=== PATIENT | female | born 1980 | race Caucasian/White ===

== ENCOUNTER 2022-02-04 22:33 | Emergency (ER) | payer OTHER ==
[2022-02-04 22:41] VITALS: RESP 18; TEMP 98.4; BMI 34.0
[2022-02-05 05:25] LABS: ALBUMIN 3.5 g/dl (3.4-5.0); BLOOD UREA NITROGEN 18.7 mg/dL (7-18); CALCIUM 8.6 mg/dL (8.5-10.1); MAGNESIUM 2.2 mg/dL (1.8-2.4)
[2022-02-05 05:27] LABS: BASO % 0.3 % (0-2.0); EOS % 2.2 % (0-4.5); LYMPH % 24.7 % (8-40); MCH 30.2 pg (25.7-33.7); MCHC 32.5 g/dl (32.0-36.0); MEAN CELL VOLUME 92.9 fl (80-96); MEAN PLT VOLUME 9.1 fl (7.5-11.1); MONO % 5.9 % (3.8-10.2); NEUT % 66.9 % (42.8-82.8); PLATELET COUNT 236 10^3/uL (134-434); RBC 3.99 M/mm3 (3.60-5.2); RDW 13.5 % (11.6-15.6); WHITE BLOOD COUNT 6.6 K/mm3 (4.0-10.0)
[2022-02-05 05:29] LABS: CREATININE 0.8 mg/dL (0.55-1.3)
[2022-02-05 05:30] LABS: BILIRUBIN,TOTAL 0.5 mg/dL (0.2-1); TOT PROT 6.4 g/dl (6.4-8.2)
[2022-02-05 05:52] LABS: INR 1.06 (0.83-1.09); PROTHROMBIN TIME (PATIENT) 12.2 SEC (9.7-13.0)
[2022-02-05 05:55] LABS: ACTIVATED PTT 31.3 SECONDS (25.2-36.5)
[2022-02-05 10:10] VITALS: BP 109/70; PULSE 52
== END 2022-02-05 10:07 | disposition home or self-care (01) ==
LOC: JER 22:33
DX: R00.2 Palpitations (principal)
CPT/HCPCS: 0241U-QW; 36415; 71045-TC-FY; 80053; 83735; 84484; 84703; 85025; 85379; 85610; 85730; 93005; 93010; 99285-25

== ENCOUNTER 2022-04-30 07:46 | Emergency (ER) | payer OTHER ==
[2022-04-30 07:56] VITALS: BP 115/69; PULSE 76; RESP 18; TEMP 97.7; BMI 38.0
[2022-04-30] MEDS ORDERED: diphenhydrAMINE HCL 25 MG CAPSULE (FP) PO ONE ×2 (09:25→09:35)
[2022-04-30] MEDS ORDERED: predniSONE 20 MG TABLET (UD) PO ONE (09:25)
[2022-04-30] MEDS ORDERED: predniSONE 20 MG TABLET (UD) ONE (09:35)
[2022-04-30 09:56] LABS: BASO % 0.2 % (0-2.0); EOS % 0.6 % (0-4.5); HEMATOCRIT 38.4 % (32.4-45.2); LYMPH % 13.3 % (8-40); MCHC 33.8 g/dl (32.0-36.0); MEAN CELL VOLUME 91.8 fl (80-96); MEAN PLT VOLUME 8.4 fl (7.5-11.1); MONO % 4.5 % (3.8-10.2); NEUT % 81.4 % (42.8-82.8); PLATELET COUNT 252 10^3/uL (134-434); RBC 4.18 M/mm3 (3.60-5.2); RDW 13.1 % (11.6-15.6); WHITE BLOOD COUNT 10.9 K/mm3 (4.0-10.0)
[2022-04-30 10:20] LABS: ALBUMIN 3.8 g/dl (3.4-5.0); CALCIUM 8.8 mg/dL (8.5-10.1)
[2022-04-30 10:21] LABS: BLOOD UREA NITROGEN 17.4 mg/dL (7-18)
[2022-04-30 10:24] LABS: CREATININE 0.8 mg/dL (0.55-1.3)
[2022-04-30 10:25] LABS: BILIRUBIN,TOTAL 0.6 mg/dL (0.2-1)
== END 2022-04-30 11:28 | disposition home or self-care (01) ==
LOC: JERFT 07:46 → JER 07:46 → JERFT 11:28
DX: R21 Rash and other nonspecific skin eruption (principal)
CPT/HCPCS: 36415; 80053; 84443; 85025; 99283-25

== ENCOUNTER 2022-05-16 23:09 | Emergency (ER) | payer OTHER ==
[2022-05-16 23:21] VITALS: BP 115/75; PULSE 85; RESP 18; TEMP 97.8; BMI 35.0
== END 2022-05-17 00:24 | disposition left against medical advice (07) ==
LOC: JER 23:09
DX: R07.89 Other chest pain (principal)
CPT/HCPCS: 93005; 93010; 99283-25

== ENCOUNTER 2024-01-07 04:37 | Day surgery (SDC) | payer OTHER ==
[2024-01-06 09:49] VITALS: BMI 35.0
[2024-01-07 11:22] VITALS: TEMP 98.3
[2024-01-07 12:10] VITALS: BP 105/60; PULSE 70; RESP 16
== END 2024-01-07 12:23 | disposition home or self-care (01) ==
LOC: JASU-ENDO 04:37
PROVIDERS: ATTEND Internal Medicine Gastroenterology
PROC: 0DB48ZX Excision of Esophagogastric Junction, Via Natural or Artificial Opening Endoscopic, Diagnostic (ICD-10-PCS; 2024-01-07)
PROC: 0DB68ZX Excision of Stomach, Via Natural or Artificial Opening Endoscopic, Diagnostic (ICD-10-PCS; 2024-01-07)
PROC: 0DBE8ZX Excision of Large Intestine, Via Natural or Artificial Opening Endoscopic, Diagnostic (ICD-10-PCS; principal; 2024-01-07 10:00)
DX: Z12.11 Encounter for screening for malignant neoplasm of colon (principal); K64.1 Second degree hemorrhoids; K21.00 Gastro-esophageal reflux disease with esophagitis, without bleeding; K44.9 Diaphragmatic hernia without obstruction or gangrene; K29.50 Unspecified chronic gastritis without bleeding; R10.12 Left upper quadrant pain; R63.4 Abnormal weight loss; R10.84 Generalized abdominal pain
CPT/HCPCS: 81025; 88305-TC

== ENCOUNTER 2024-01-21 03:51 | Day surgery (SDC) | payer OTHER ==
[2024-01-16 11:45] VITALS: BMI 33.5
[2024-01-21] MEDS ORDERED: INDOCYANINE GREEN 25 MG/10 ML VIAL IVPUSH ONE ×2 (07:19→07:20)
[2024-01-21] MEDS ORDERED: BUPIVACAINE HCL/PF 0.25% (2.5MG/ML) 10 ML VIAL ONE (07:19)
[2024-01-21] MEDS ORDERED: ROCURONIUM BROMIDE 50 MG/5 ML SYRINGE ONE ×2 (07:41→08:26)
[2024-01-21] MEDS ORDERED: PROPOFOL 20 ML ONE (07:41)
[2024-01-21] MEDS ORDERED: MIDAZOLAM HCL 2 MG/2 ML SINGLE DOSE VIAL ONE (08:03)
[2024-01-21] MEDS ORDERED: cefOXitin SODIUM 2 GM VIAL (RESTRICTED TO ID) IVPB ONE (08:21)
[2024-01-21] MEDS: cefOXitin SODIUM 2 GM VIAL (RESTRICTED TO ID) IVPB ONE ×2 (08:25)
[2024-01-21] MEDS: BUPIVACAINE HCL/PF 0.25% (2.5MG/ML) 10 ML VIAL IJ ONE ×2 (08:32)
[2024-01-21] MEDS ORDERED: ACETAMINOPHEN INJECTION 100 ML ONE (09:41)
[2024-01-21] MEDS ORDERED: DEXAMETHASONE SOD PHOSPHATE 4 MG/1 ML VIAL ONE (09:43)
[2024-01-21] MEDS ORDERED: ONDANSETRON 4 MG/2 ML VIAL ONE (09:43)
[2024-01-21] MEDS ORDERED: SUGAMMADEX SODIUM 200 MG/2 ML VIAL ONE ×2 (09:45→09:51)
[2024-01-21] MEDS ORDERED: ONDANSETRON 4 MG/2 ML VIAL IVPUSH PRN (10:54)
[2024-01-21] MEDS ORDERED: LACTATED RINGERS SOLUTION 1,000 ML IV SCH (11:00)
[2024-01-21] MEDS: oxyCODONE HCL 5 MG TABLET PO PRN (12:19)
[2024-01-21] MEDS ORDERED: oxyCODONE HCL 5 MG TABLET ONE (12:22)
[2024-01-21 12:58] VITALS: RESP 20; TEMP 97.3
[2024-01-21 15:31] VITALS: BP 135/75; PULSE 78
== END 2024-01-21 14:05 | disposition home or self-care (01) ==
LOC: JASU-SURG 03:51
PROVIDERS: ATTEND Surgery
PROC: 0FT44ZZ Resection of Gallbladder, Percutaneous Endoscopic Approach (ICD-10-PCS; principal; 2024-01-21 08:00)
DX: K80.10 Calculus of gallbladder with chronic cholecystitis without obstruction (principal); E03.9 Hypothyroidism, unspecified; M85.88 Other specified disorders of bone density and structure, other site
CPT/HCPCS: 47562; S2900; 81025; 86850; 86900; 86901; 88304-TC; 94760; J0131

== ENCOUNTER 2024-06-07 11:27 | Inpatient (IN) | payer OTHER ==
[2024-06-07 11:45] VITALS: BMI 32.2
[2024-06-07 12:52] LABS: BASO % 0.6 % (0-2.0); EOS % 1.8 % (0-4.5); HEMATOCRIT 36.1 % (32.4-45.2); HEMOGLOBIN 12.4 GM/dL (10.7-15.3); LYMPH % 25.6 % (8-40); MCH 31.1 pg (25.7-33.7); MCHC 34.3 g/dl (32.0-36.0); MEAN CELL VOLUME 90.8 fl (80-96); MEAN PLT VOLUME 8.9 fl (7.5-11.1); MONO % 6.3 % (3.8-10.2); NEUT % 65.7 % (42.8-82.8); PLATELET COUNT 221 10^3/uL (134-434); RBC 3.98 M/mm3 (3.60-5.2); RDW 13.7 % (11.6-15.6); WHITE BLOOD COUNT 5.6 K/mm3 (4.0-10.0)
[2024-06-07 14:09] LABS: ALBUMIN 3.7 g/dl (3.4-5.0); CALCIUM 8.7 mg/dL (8.5-10.1)
[2024-06-07 14:15] LABS: BILIRUBIN,TOTAL 0.7 mg/dL (0.2-1); BLOOD UREA NITROGEN 9.9 mg/dL (7-18); CREATININE 0.7 mg/dL (0.55-1.3); TOT PROT 6.8 g/dl (6.4-8.2)
[2024-06-07 14:32] LABS: EPI CELLS 7 /uL (0-25.1); HYALINE CASTS 0 /uL (0-3.1); URINE APPEARANCE CLEAR; URINE BACTERIA 16 /uL (0-1359); URINE BILIRUBIN NEGATIVE (NEGATIVE); URINE COLOR YELLOW; URINE GLUCOSE (UA) NEGATIVE (NEGATIVE); URINE KETONE NEGATIVE (NEGATIVE); URINE LEUK ESTERASE NEGATIVE (NEGATIVE); URINE NITRITE NEGATIVE (NEGATIVE); URINE PROTEIN NEGATIVE (NEGATIVE); URINE RBC 117 /uL (0-23.9); URINE UROBILINOGEN 0.2 mg/dL (0.2-1.0); URINE WBC 4 /uL (0-25.8)
[2024-06-07 15:52] LABS: HIV INTERPRETATION NEGATIVE (NEGATIVE)
[2024-06-07] MEDS ORDERED: ACETAMINOPHEN INJECTION 100 ML ONE ×2 (18:34→20:38)
[2024-06-07] MEDS: ACETAMINOPHEN 1000 MG/100 ML BAG IVPB ONE ×2 (19:14→21:19)
[2024-06-07 21:28] LABS: BASO % 0.9 % (0-2.0); EOS % 1.8 % (0-4.5); HEMATOCRIT 36.5 % (32.4-45.2); HEMOGLOBIN 12.3 GM/dL (10.7-15.3); MCH 30.5 pg (25.7-33.7); MCHC 33.7 g/dl (32.0-36.0); MEAN CELL VOLUME 90.7 fl (80-96); MONO % 6.2 % (3.8-10.2); NEUT % 65.1 % (42.8-82.8); PLATELET COUNT 217 10^3/uL (134-434); RBC 4.03 M/mm3 (3.60-5.2); RDW 13.7 % (11.6-15.6); WHITE BLOOD COUNT 6.4 K/mm3 (4.0-10.0)
[2024-06-07] MEDS: DEXTROSE 5%-LACTATED RINGERS 1,000 ML IV SCH (21:37)
[2024-06-07 21:55] LABS: POTASSIUM 4.3 mmol/L (3.5-5.1)
[2024-06-07] MEDS ORDERED: CEFTRIAXONE 1 G/50 ML PREMIX 50 ML IVPB ONE (21:55)
[2024-06-07 21:57] LABS: ALBUMIN 3.6 g/dl (3.4-5.0); BLOOD UREA NITROGEN 9.2 mg/dL (7-18); CALCIUM 8.6 mg/dL (8.5-10.1)
[2024-06-07 22:01] LABS: CREATININE 0.7 mg/dL (0.55-1.3)
[2024-06-07 22:02] LABS: BILIRUBIN,TOTAL 0.7 mg/dL (0.2-1); TOT PROT 6.6 g/dl (6.4-8.2)
[2024-06-08] MEDS: PIPERACILLIN/TAZOB 3.375 GM 50 ML IVPB SCH (10:24)
[2024-06-08] MEDS: AZTREONAM 1 GM in DEXTROSE 5%-WATER - 50 ML IVPB SCH (13:50)
[2024-06-08] MEDS: POLYETHYLENE GLYCOL (HEALTHYLAX) 3350 17 GM PACKET PO SCH (15:48)
[2024-06-09 06:47] VITALS: RESP 20
[2024-06-09 09:16] LABS: BASO % 0.5 % (0-2.0); HEMATOCRIT 34.5 % (32.4-45.2); HEMOGLOBIN 11.8 GM/dL (10.7-15.3); LYMPH % 32.9 % (8-40); MCH 30.7 pg (25.7-33.7); MCHC 34.1 g/dl (32.0-36.0); MEAN CELL VOLUME 90.2 fl (80-96); MEAN PLT VOLUME 8.8 fl (7.5-11.1); MONO % 6.9 % (3.8-10.2); NEUT % 55.7 % (42.8-82.8); PLATELET COUNT 196 10^3/uL (134-434); RBC 3.83 M/mm3 (3.60-5.2); RDW 13.2 % (11.6-15.6)
[2024-06-09 09:43] LABS: POTASSIUM 3.9 mmol/L (3.5-5.1)
[2024-06-09] MEDS ORDERED: POLYETHYLENE GLYCOL (HEALTHYLAX) 3350 17 GM PACKET PO SCH (10:00)
[2024-06-09 10:01] LABS: CALCIUM 8.9 mg/dL (8.5-10.1)
[2024-06-09 10:02] LABS: BLOOD UREA NITROGEN 8.4 mg/dL (7-18)
[2024-06-09 10:05] LABS: CREATININE 0.7 mg/dL (0.55-1.3)
[2024-06-09 13:46] VITALS: BP 106/58; PULSE 64; TEMP 98
== END 2024-06-09 14:19 | disposition home or self-care (01) | DRG 395 ==
LOC: JER 11:27 → JERBED 21:10 → J8W 06-08 00:26
PROVIDERS: ADMIT Family Medicine; ATTEND Family Medicine
DX: K63.9 Disease of intestine, unspecified (principal); K21.9 Gastro-esophageal reflux disease without esophagitis; R10.9 Unspecified abdominal pain; N93.9 Abnormal uterine and vaginal bleeding, unspecified
CPT/HCPCS: 36415; 74177-TC; 76830-TC; 80048; 80053; 81003; 82962; 84703; 85025; 86803; 87086; 87389; 99285-25; J0131; Q9967

== ENCOUNTER 2024-12-07 10:01 | Emergency (ER) | payer OTHER ==
[2024-12-07 10:11] VITALS: BP 127/73; PULSE 87; RESP 16; TEMP 98; BMI 29.7
[2024-12-07] MEDS ORDERED: FAMOTIDINE 20 MG/50 ML IVPB 20 MG/50 ML MG IVPB ONE ×2 (10:37→10:57)
[2024-12-07] MEDS ORDERED: ACETAMINOPHEN INJECTION 100 ML ONE (10:57)
[2024-12-07] MEDS ORDERED: MAG HYDROX/AL HYDROX/SIMETH 30 ML UNIT-DOSE CUP ONE (10:57)
[2024-12-07 11:24] LABS: ABSOLUTE IMMATURE GRANULOCYTES 0.01 x10^3/uL (0.0-0.031); BASOPHILS # 0.04 x10^3/uL (0.01-0.08); EOSINOPHIL % 1.4 % (0.7-5.8); EOSINOPHILS # 0.07 x10^3/uL (0.04-0.36); MCHC 32.2 g/dl (32.2-35.5); MEAN CELL VOLUME 94.8 fl (79.4-94.8); MEAN PLT VOLUME 10.3 fl (9.4-12.3); MONOCYTE # 0.28 x10^3/uL (0.24-0.86); MONOCYTE % 5.7 % (4.7-12.5); RDW 12.6 % (12.2-17.1)
[2024-12-07 11:31] LABS: INR 1.09 (0.83-1.09); PROTHROMBIN TIME (PATIENT) 11.9 SEC (9.7-13.0)
[2024-12-07 11:33] LABS: ACTIVATED PTT 32.3 SECONDS (25.2-36.5)
[2024-12-07 11:43] LABS: GLUCOSE,RANDOM 91.0 mg/dL (74-106); TOT PROT 6.8 g/dl (6.4-8.2)
[2024-12-07 11:44] LABS: CO2 25.0 mmol/L (21-32)
[2024-12-07 11:46] LABS: ALK PHOS 45.0 U/L (40-150)
[2024-12-07 11:49] LABS: CREATININE 0.92 mg/dL (0.55-1.3); SGOT/AST 19.0 U/L (5-34); SGPT/ALT 16.0 U/L (0-55)
[2024-12-07] MEDS: SODIUM CHLORIDE 0.9% 500 ML INFUS.BAG IV ONE (11:58)
[2024-12-07] MEDS: ACETAMINOPHEN 1000 MG/100 ML BAG IVPB ONE (11:58)
[2024-12-07] MEDS: MAG HYDROX/AL HYDROX/SIMETH 30 ML UNIT-DOSE CUP PO ONE (11:58)
== END 2024-12-07 15:09 | disposition home or self-care (01) ==
LOC: JER 10:01
PROC: 3E033NZ Introduction of Analgesics, Hypnotics, Sedatives into Peripheral Vein, Percutaneous Approach (ICD-10-PCS; principal; 2024-12-07)
DX: R07.89 Other chest pain (principal); R11.2 Nausea with vomiting, unspecified; R00.2 Palpitations; R06.02 Shortness of breath; R61 Generalized hyperhidrosis; M54.50 Low back pain, unspecified; G89.29 Other chronic pain
CPT/HCPCS: 36415; 71046-TC-FY; 80053; 83690; 83735; 84484; 84703; 85025; 85379; 85610; 85730; 93005; 93010; 99285-25